=== PATIENT | female | born 1975 | race Caucasian/White ===

== ENCOUNTER 2023-06-09 15:46 | Emergency (ER) | payer OTHER, SELFPAY ==
[2023-06-09 16:01] VITALS: BP 146/81
[2023-06-09 16:18] VITALS: BMI 27.8
--- NOTE | 2023-06-09 17:17 | EDRN ---
the pt is resting in stretcher in the lowest position, side rails up x2, HOB elevated, no s/s of distress, awaiting for provider to see the pt, no c/o chest pain, no c/o SOB, will continue to monitor the pt closely
--- NOTE | 2023-06-09 18:00 | EDRN ---
currently still waiting for provider to see the pt, no s/s of distress, will continue to monitor the pt closely
--- NOTE | 2023-06-09 18:52 | ED.GENMED ---
History of Present Illness
General
Chief Complaint: Swelling
Source: patient
Exam Limitations: none
Time Seen by Provider: 06/09/23 18:21
Nursing documentation reviewed up to this point in time: agreed with
Travel History
Have you had any contact with someone who has COVID-19?: No
Do you have any symptoms of coronavirus? Fever > 100 degrees, chills, cough, shortness of breath, sore throat, loss of taste or smell, muscle aches, or headache?: No
History of Present Illness
History of Present Illness:
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 Denies fever or chills. Denies trauma. Denies loss of
sensation or weakness. Denies recent illness. Denies recent travel. Denies recent surgery. Denies chest pain or shortness of breath. Patient has been taking Eliquis daily, as prescribed. Patient's occupation unfortunately has patient on her
feet for prolonged course of time.
Past History
Past History
ED Past Medical History: Asthma, IDDM and Other ( PE/DVT)
ED Past Surgical History: Cardiac (Cardiac ablation), ( X 5) and Tonsilectomy
Social History
Tobacco: Non-smoker
Alcohol: None
Personal: Single
Living: with family
Family History
Family History: Negative Diabetes, Hypertension or CAD
Review of Systems
Review of Systems
Allergies reviewed?: Yes
All Other Systems: ROS reviewed and negative except as documented in HPI and ROS
Constitutional: Reports no symptoms
Respiratory: Reports no symptoms; Denies trouble breathing
Cardiac: Reports no symptoms; Denies chest pain
ABD/GI: Reports no symptoms
Musculoskeletal: Reports edema
Skin: Reports no symptoms
Neurological: Reports no symptoms
Phy Exam
Physical Exam
Physical Exam:
Physical Exam
General: no apparent distress, not acutely ill. afebrile
Head: nc/at. eomi
Neck: supple. no meningeal signs
Neuro: alert and oriented. no focal neurological deficits
Skin: no rash
Psychiatric: well kept. interactive and cooperative
Extremities: RLE edema. no calf tenderness.
Scores
Heart Failure Risk
Heart Failure Risk Score: Not Applicable
Course
Orders/Labs/Results
Orders:
Orders
06/09/23 18:55
Basic Metabolic Panel Urgent
Magnesium Urgent
Abnormal Lab Results
06/09/23
18:55
BUN 27 H mg/dl
(7-17)
Glucose 171 H mg/dl
(70-99)
06/09/23 18:55
Vital Signs
Initial and Last Documented VS:
Initial Vital Signs
Temp Pulse Resp BP Pulse Ox
97.9 F 90 18 146/81 98
06/09/23 16:01 06/09/23 16:01 06/09/23 16:01 06/09/23 16:01 06/09/23 16:01
Last Documented Vital Signs
Temp Pulse Resp BP Pulse Ox
97.9 F 90 18 146/81 99
06/09/23 16:01 06/09/23 16:01 06/09/23 16:01 06/09/23 16:01 06/09/23 16:18
MDM/Problems Addressed
MDM/Problems Addressed:
After evaluation, blood work and right lower leg ultrasound ordered to evaluate for potential DVT.
Unfortunately while waiting for ultrasound, patient informed staff that she was leaving ED due to prolonged waiting time to wait for DVT study.
*Critical Care Note
Total Time (30-74mins, 75-104mins- exclusive of procedures): Not Applicable
ED Attending Note
-
Portions of this chart may have been created with voice recognition software.� Occasional wrong word or��sound alike� substitutions may have occurred due to the inherent limitations of voice recognition software.
Discharge Plan
Departure
Patient Disposition: Elopement
Date of Disposition: 06/09/23
Time of Disposition: 22:19
Discharge Problem:
Leg swelling
Prescriptions:
No Action
gabapentin 400 MG capsule
1,200 mg PO TID
cholecalciferol (vitamin D3) 2,000 UNITS tablet
2,000 unit PO DAILY
Eliquis 5 MG tablet
5 mg PO BID
Referrals:
Ottoniel Skaggs, DO [Family Provider] -
Interventions
Interventions:
*Risk Screen - Suicide Last Done: 06/09/23 16:18
*General Assessment Last Done: 06/09/23 16:01
*Neglect/Abuse Screening Last Done: 06/09/23 16:18
ED- Fall Risk Assessment Last Done: 06/09/23 16:18
*ED COVID-19 Vaccine History Last Done: 06/09/23 16:01
*Nursing Disposition Last Done: 06/09/23 22:21
ED- Cardiac Assessment Last Done: 06/09/23 16:18
ED- Pulmonary Assessment Last Done: 06/09/23 16:18
ED-Skin Assessment Last Done: 06/09/23 16:18
Discharge Date and Time
Discharge Date/Time: 06/09/23 20:49
[2023-06-09 19:24] LABS: Blood Urea Nitrogen 27 mg/dl (7-17); Carbon Dioxide 27 mmol/L (22-30); Chloride 107 mmol/L (98-107); Estimated Creatinine Clearance 104 ml/min; Glucose 171 mg/dl (70-99); Magnesium 2.2 mg/dl (1.6-2.3); Sodium 137 mmol/L (135-145); eGFR > 60.00
== END 2023-06-09 20:49 | disposition left against medical advice (07) ==
LOC: EMR 15:46
PROVIDERS: EMERGENCY PHYSICIAN Emergency Medicine; FAMILY PHYSICIAN Family Medicine
DX: R22.41 Localized swelling, mass and lump, right lower limb (principal); Z79.01 Long term (current) use of anticoagulants; Z86.711 Personal history of pulmonary embolism; Z86.718 Personal history of other venous thrombosis and embolism; Z53.29 Procedure and treatment not carried out because of patient's decision for other reasons
CPT/HCPCS: 99283; 80048; 83735